=== PATIENT | female | born 1950 | race Caucasian/White ===

== ENCOUNTER 2022-03-10 13:23 | Outpatient (CLI) | payer MEDICARE, SELFPAY ==
[2022-03-10 21:34] LABS: Albumin* 4.6 g/dL (3.3-5.0)
[2022-03-10 21:35] LABS: Chloride* 100 mmol/L (96-114); Potassium* 4.7 mmol/L (3.6-5.1); Sodium* 136 mmol/L (135-149)
[2022-03-10 21:37] LABS: Aspartate Amino Transferase* 30 U/L (12-35); Bilirubin Total* 0.8 mg/dL (0.1-1.5); Carbon Dioxide* 28 mmol/L (20-32); Cholesterol* 247 mg/dL (90-199); Creatinine* 0.7 mg/dL (0.5-1.5); Estimated Glomerular Filt Rate 94 ml/min; Total Protein* 7.2 g/dL (6.0-8.3)
[2022-03-10 21:38] LABS: Alanine Aminotransferase* 21 U/L (4-35); Alkaline Phosphatase* 73 U/L (40-150); Blood Urea Nitrogen* 21 mg/dL (7-30); Calcium* 8.8 mg/dL (8.4-10.6); Glucose* 105 mg/dL (60-115); HDL Cholesterol* 97 mg/dL (>=50); LDL Cholesterol Calculated 139 mg/dL (<100); Triglycerides* 53 mg/dL (40-149)
== END 2022-03-10 13:24 | disposition home or self-care (01) ==
PROVIDERS: PCP Physician Assistant Medical; Visit Provider Physician Assistant Medical
DX: E78.5 Hyperlipidemia, unspecified (principal); I10 Essential (primary) hypertension; M85.80 Other specified disorders of bone density and structure, unspecified site
CPT/HCPCS: 80053; 80061; 84443

== ENCOUNTER 2023-01-15 13:44 | Outpatient (CLI) | payer MEDICARE, SELFPAY ==
--- NOTE | 2023-01-15 14:00 | CRLHL7_ITS ---
For Patients: As a result of the Century Cures Act, medical imaging exams and procedure reports are released immediately into your electronic medical record. You may view this report before your referring provider. If you have questions, please contact your health care provider. BILATERAL SCREENING MAMMOGRAM WITH COMPUTER-AIDED DETECTION AND TOMOSYNTHESIS TECHNIQUE: CC and MLO views were obtained. These mammographic images have been obtained using full-field digital technique. These mammographic images were interpreted with the benefit of computer-aided detection. Breast Tomosynthesis was used in this interpretation. COMPARISON FILM: 10/17/21, 09/09/20, 05/31/19. FINDINGS: The breasts are heterogeneously dense, which may obscure small masses IMPRESSION: There is no radiographic evidence for malignancy. ASSESSMENT: BI-RADS Category 2: Benign RECOMMENDATION: Routine screening mammogram in 1 year. A lay language report of this examination will be provided to the patient. Eduar Duran M.D. Diagnostic Radiologist [email or web address] CHARITY/Dictated by: Eduar Duran MD @ 01/19/2023 8:32:00 AM (Electronically Signed)
== END 2023-01-15 13:45 | disposition home or self-care (01) ==
LOC: MAMMO 13:45
PROVIDERS: PCP Physician Assistant Medical; Visit Provider Physician Assistant Medical
DX: Z12.31 Encounter for screening mammogram for malignant neoplasm of breast (principal); R92.2 Inconclusive mammogram
CPT/HCPCS: 77063; 77067

== ENCOUNTER 2023-03-11 08:30 | Outpatient (CLI) | payer MEDICARE, SELFPAY | END 2023-03-11 08:31 | disposition home or self-care (01) | LOC: NFLDREF 03-14 23:51 | PROVIDERS: PCP Physician Assistant Medical; Referring Provider Physician Assistant Medical; Visit Provider Physician Assistant Medical | DX: Z00.00 Encounter for general adult medical examination without abnormal findings (principal); E78.2 Mixed hyperlipidemia; L65.9 Nonscarring hair loss, unspecified; I10 Essential (primary) hypertension; Z78.0 Asymptomatic menopausal state | CPT/HCPCS: 80053; 80061; 84443 ==

== ENCOUNTER 2023-09-02 12:48 | Outpatient (CLI) | payer MEDICARE, SELFPAY ==
--- NOTE | 2023-09-02 13:00 | XR_ITS ---
Patient: GETACHEW TURPIN Facility:?[facility] Patient ID:?[id number] Site Patient ID:?[id number]. Site :?[id number] Study:?DEXA-Bone Density -09/02/2023 3:41:08 PM Ordering Physician:LETTY Final Report: DXA BONE MINERAL DENSITY STUDY Reason for exam: Asymptomatic menopausal state. Current height (inches): 67.0 Weight (lbs.): 145.0 Menopause age: 54 Ethnicity: White 1. Have you had a previous hip or vertebral fracture? No. 2. Have you had any fractures during your adult life which did not result from significant trauma (e.g., auto accident)? No. 3. Did either of your parents have a hip fracture? No. 4. Do you smoke? No. 5. Have you ever taken Glucocorticoids? No. 6. Do you have rheumatoid arthritis? No. 7. Do you have secondary osteoporosis? No. 8. Do you drink 3 or more alcoholic drinks per day? No. 9. Are you being treated for osteoporosis? No. 10. Have you ever taken any of the following medications: Actonel, Evista, Fosamax, Miacalcin, Reclast, Boniva, Forteo, HRT (i.e., estrogen/hormone therapy), Protelos, Prolia, Vitamin D, Calcium, other ? please specify. ANSWER: No. 11. Do you have any of the following medical conditions: Anorexia or bulimia, asthma or emphysema, end stage renal disease, hyperparathyroidism, any seizure disorders, cancer, inflammatory bowel diseases, hysterectomy, other ? please specify. ANSWER: No. 12. What was your maximum height (inches)? 67. 13. Do you perform weightbearing exercise regularly? Yes. 14. Do you regularly consume dairy products? No. 15. Do you drink caffeinated beverages? Yes. 16. At what age did your period start? 18. 17. Are you premenopausal? No. 18. How many full-term pregnancies have you had? 3. 19. Have you ever missed your period for more than 6 months in a row (not including or menopause)? No. TECHNIQUE: Bone mineral density study was performed using the [employer]. FINDINGS: The results of the study expressed as bone mineral density (BMD) are as follows: Lumbar Spine L1 to L2, L4: BMD: 0.954 g/cm2. T-score: -0.7. Z-score: 1.4. Neck Left: BMD: 0.672 g/cm2. T-score: -1.6. Z-score: 0.3. Right: BMD: 0.681 g/cm2. T-score: -1.5. Z-score: 0.3. Total Left: BMD: 0.750 g/cm2. T-score: -1.6. Z-score: 0.0. Right: BMD: 0.766 g/cm2. T-score: -1.4. Z-score: 0.1. IMPRESSION: Osteopenia. COMPARISON: Compared with scan of 05/05/2018, the bone mineral density has increased by 1.1% at the spine and decreased by 0.9% at the hip. *Comparison exams done prior to 10/2019 were performed on different unit, [facility]. FRAX 10-year Fracture Risk Major Osteoporotic Fracture: 9.9% Hip Fracture: 1.7% Reported Risk Factors: [place] () Neck BMD = 0.672, BMI = 22.7 JAVIER GORDON M.D. Diagnostic Radiologist [email or web address] D& Transcribed: 12:[address]/Dictated by: Javier Gordon MD @ 09/03/2023 11:46:00 AM Signed by:?Javier Gordon MD @09/03/2023 4:13:32 PM (Electronic Signature)
== END 2023-09-02 12:49 | disposition home or self-care (01) ==
LOC: RAD 12:50
PROVIDERS: PCP Physician Assistant Medical; Visit Provider Physician Assistant Medical
DX: Z78.0 Asymptomatic menopausal state (principal); M85.88 Other specified disorders of bone density and structure, other site
CPT/HCPCS: 77080

== ENCOUNTER 2024-03-16 13:57 | Outpatient (CLI) | payer MEDICARE, SELFPAY | END 2024-03-16 13:58 | disposition home or self-care (01) | LOC: NFLDREF 03-19 14:16 | PROVIDERS: PCP Physician Assistant Medical; Referring Provider Physician Assistant Medical; Visit Provider Physician Assistant Medical | DX: I10 Essential (primary) hypertension (principal); E78.2 Mixed hyperlipidemia; L65.9 Nonscarring hair loss, unspecified; M85.80 Other specified disorders of bone density and structure, unspecified site | CPT/HCPCS: 80053; 80061; 84443 ==

== ENCOUNTER 2024-08-28 11:10 | Outpatient (CLI) | payer MEDICARE, SELFPAY ==
--- NOTE | 2024-08-28 11:30 | CRLHL7_ITS ---
For Patients: As a result of the Century Cures Act, medical imaging exams and procedure reports are released immediately into your electronic medical record. You may view this report before your referring provider. If you have questions, please contact your health care provider. INDICATION: BILATERAL SCREENING MAMMOGRAM, ASYMPTOMATIC 73 Y/O FEMALE COMPARISON: 01/15/23, 10/17/21, 09/09/20 TECHNIQUE: CC and MLO views were obtained. These mammographic images have been obtained using full-field digital technique. These mammographic images were interpreted with the benefit of computer aided detection and tomosynthesis. BREAST COMPOSITION: There are scattered areas of fibroglandular density. FINDINGS: No suspicious findings. ASSESSMENT: BI-RADS 1 Negative RECOMMENDATION: Annual screening mammogram. A lay language report of this examination will be provided to the patient. Dictated by: Eduar Duran MD @ 09/06/2024 09:05:22 (Electronically Signed)
== END 2024-08-28 11:11 | disposition home or self-care (01) ==
LOC: MAMMO 11:10
PROVIDERS: PCP Physician Assistant Medical; Visit Provider Physician Assistant Medical
DX: Z12.31 Encounter for screening mammogram for malignant neoplasm of breast (principal)
CPT/HCPCS: 77063; 77067

== ENCOUNTER 2024-12-08 10:47 | Outpatient (CLI) | payer MEDICARE, SELFPAY | END 2024-12-08 10:48 | disposition home or self-care (01) | LOC: NFLDREF 12-11 16:25 | PROVIDERS: PCP Physician Assistant Medical; Referring Provider Physician Assistant Medical; Visit Provider Nurse Practitioner Family | DX: S50.862A Insect bite (nonvenomous) of left forearm, initial encounter (principal); Z11.8 Encounter for screening for other infectious and parasitic diseases | CPT/HCPCS: 86618 ==

== ENCOUNTER 2025-03-21 09:29 | Outpatient (CLI) | payer MEDICARE, SELFPAY | END 2025-03-21 09:30 | disposition home or self-care (01) | PROVIDERS: PCP Physician Assistant Medical; Visit Provider Nurse Practitioner Family | DX: I10 Essential (primary) hypertension (principal); E78.2 Mixed hyperlipidemia | CPT/HCPCS: 80053; 80061 ==